=== PATIENT | male | born 1955 | race Caucasian/White ===

== ENCOUNTER 2016-11-04 08:58 | Day surgery (SDC) | payer BC ==
[2016-11-04 09:47] LABS: HEMATOCRIT 38.5 % (37.9-51.0); HEMOGLOBIN 13.5 g/dL (13.5-17.0); MEAN CORPUSCULAR HEMOGLOBIN 32.3 pg (27.0-33.4); MEAN CORPUSCULAR VOLUME 92 fl (80-97); RED BLOOD COUNT 4.17 10^6/uL (4.35-5.55); RED CELL DISTRIBUTION WIDTH 12.8 % (11.5-14.0); WHITE BLOOD COUNT 4.4 10^3/uL (4.0-10.5)
[2016-11-04] MEDS ORDERED: PROMETHAZINE HCL INJ 25 MG/1 ML VIAL ONE (10:36)
[2016-11-04] MEDS ORDERED: NALOXONE HCL INJ/PF 0.4 MG/1 ML SDV ONE (10:36)
[2016-11-04] MEDS ORDERED: GLYCOPYRROLATE INJ 0.4 MG/2 ML VIAL ONE (10:36)
[2016-11-04] MEDS ORDERED: ONDANSETRON HCL INJ/PF 4 MG/2 ML SDV ONE (10:36)
[2016-11-04] MEDS ORDERED: GLUCAGON,HUMAN RECOMB 1 MG INJ ONE (10:37)
[2016-11-04] MEDS ORDERED: EPINEPHRINE INJ 1 MG/10 ML DISP.SYRIN ONE (10:37)
[2016-11-04] MEDS ORDERED: FENTANYL CITRATE INJ/PF 100 MCG/2 ML AMPUL ONE (10:37)
[2016-11-04] MEDS ORDERED: FLUMAZENIL INJ 0.5 MG/5 ML VIAL IV ONE (10:37)
[2016-11-04] MEDS: MIDAZOLAM 2 MG/2 ML INJ ONE ×3 (11:05→11:17)
--- NOTE | 2016-11-04 11:46 | Operative Report ---
Operative Report DATE OF SURGERY: 11/04/16 PREOPERATIVE DIAGNOSIS: Screening for colon malignancy POSTOPERATIVE DIAGNOSIS: Rectal polyps OPERATION: Colonoscopy with the biopsy and fulguration of upper rectal polyp. Snare polypectomy of mid rectal polyp. SURGEON: SAGAR BALLESTEROS ANESTHESIA: Moderate Sedation TISSUE REMOVED OR ALTERED: Mid rectal and upper rectal polyps COMPLICATIONS: None ESTIMATED BLOOD LOSS: minimal INTRAOPERATIVE FINDINGS: Half centimeter sessile polyps at the upper rectum and at the mid rectum PROCEDURE: Informed consent was obtained. Patient was brought to the endoscopy suite. IV sedation with Versed and fentanyl was administered. Digital rectal exam revealed no palpable perianal masses. Endoscope was passed via the patient's anus it was fed to the cecum. The bowel prep was good visualization was good the cecum right colon transverse colon were all normal. Descending colon has scattered diverticuli there were more diverticuli in the sigmoid colon. At the mid to upper rectum there was a half centimeter sessile polyp which was biopsied and then fulgurated. Little bit distal to this polyp at the mid rectum there was a half centimeter sessile polyp which was snare polypectomy then specimen retrieved. Patient tolerated procedure well with no apparent complications and was taken to the recovery area in stable condition. Status post successful polypectomies of 2 rectal polyps. Will follow-up with the patient in a couple weeks with the biopsy results.
--- NOTE | 2016-11-04 11:49 | PDOC DISCHARGE SUMMARY ---
Discharge Summary (SDC) - Discharge Final Diagnosis: Rectal polyps 2. Colon diverticulosis. Date of Surgery: 11/04/16 Discharge Date: 11/04/16 Condition: Good Treatment or Instructions: Colonoscopy with polypectomies 2. December discharge patient home when met discharge criteria. Follow-up with me in 2 weeks. Discharge Diet: As Tolerated Discharge Activity: Activity As Tolerated Report the Following to Your Physician Immediately: Increase in Pain - Normal to have some abdominal discomfort but not severe pain, Unusual Bleeding - Normal to have small amounts of bleeding.
[2016-11-04 12:45] VITALS: BP 133/86
== END 2016-11-04 12:40 | disposition home or self-care (01) ==
LOC: END 08:58
PROVIDERS: ATTEND Surgery
PROC: 0DBN8ZX Excision of Sigmoid Colon, Via Natural or Artificial Opening Endoscopic, Diagnostic (ICD-10-PCS; principal; 2016-11-04 10:30)
PROC: 0DBP8ZX Excision of Rectum, Via Natural or Artificial Opening Endoscopic, Diagnostic (ICD-10-PCS; 2016-11-04 10:30)
DX: Z12.11 Encounter for screening for malignant neoplasm of colon (principal); K62.1 Rectal polyp; K63.5 Polyp of colon; K57.30 Diverticulosis of large intestine without perforation or abscess without bleeding; I10 Essential (primary) hypertension; K21.9 Gastro-esophageal reflux disease without esophagitis; Z79.899 Other long term (current) drug therapy; Z79.82 Long term (current) use of aspirin; Z87.891 Personal history of nicotine dependence
CPT/HCPCS: 45384; 45385; 36415; 85027; 88305 ×2; J2250; J3010; J0171; J1610; J2310; J2405; J2550; J3490

== ENCOUNTER → 2017-03-11 | Outpatient (CLI) | payer BC ==
[2017-03-11 08:44] LABS: ABSOLUTE EOSINOPHILS # (AUTO) 0.1 10^3/uL (0.0-0.6); ABSOLUTE LYMPHOCYTES (AUTO) 2.5 10^3/uL (0.5-4.7); ABSOLUTE MONOCYTES (AUTO) 0.5 10^3/uL (0.1-1.4); BASOPHILS % (AUTO) 0.7 % (0-2); EOSINOPHILS % (AUTO) 2.9 % (0-6); HEMATOCRIT 42.4 % (37.9-51.0); HEMOGLOBIN 14.9 g/dL (13.5-17.0); HGB HCT DIFFERENCE 2.3; LYMPHOCYTES % (AUTO) 47.7 % (13-45); MEAN CORPUSCULAR HEMOGLOBIN 32.9 pg (27.0-33.4); MEAN CORPUSCULAR HGB CONC 35.1 g/dL (32.0-36.0); MEAN CORPUSCULAR VOLUME 94 fl (80-97); MONOCYTES % (AUTO) 10.2 % (3-13); RED BLOOD COUNT 4.52 10^6/uL (4.35-5.55); RED CELL DISTRIBUTION WIDTH 12.8 % (11.5-14.0); SEGMENTED NEUTROPHILS % (AUTO) 38.5 % (42-78); WHITE BLOOD COUNT 5.1 10^3/uL (4.0-10.5)
[2017-03-11 09:18] LABS: ALANINE AMINOTRANSFERASE 31 U/L (21-72); ALBUMIN 4.2 g/dL (3.5-5.0); ALKALINE PHOSPHATASE 56 U/L (38-126); ANION GAP 9 (5-19); ASPARTATE AMINO TRANSFERASE 25 U/L (17-59); BILIRUBIN,DIRECT 0.3 mg/dL (0.0-0.4); BILIRUBIN,TOTAL 0.6 mg/dL (0.2-1.3); BLOOD UREA NITROGEN 12 mg/dL (7-20); CARBON DIOXIDE 27 mmol/L (22-30); CHLORIDE 98 mmol/L (98-107); CHOLESTEROL 194.89 mg/dL (0-200); CREATININE RESULT 0.84 mg/dL (0.52-1.25); Direct HDL 81 mg/dL (>40); GLUCOSE 99 mg/dL (75-110); POTASSIUM 4.9 mmol/L (3.6-5.0); SODIUM 133.8 mmol/L (137-145); TOTAL PROTEIN 7.5 g/dL (6.3-8.2); TRIGLYCERIDES 77 mg/dL (<150)
[2017-03-11 09:30] LABS: DIRECT LDL 96 mg/dL (<100)
== END ==
LOC: OD 07:54
PROVIDERS: ATTEND Internal Medicine
DX: I10 Essential (primary) hypertension (principal); E78.5 Hyperlipidemia, unspecified; R35.1 Nocturia
CPT/HCPCS: 36415; 80053; 80061; 84153; 84443; 85025

== ENCOUNTER 2017-11-12 07:48 | Day surgery (SDC) | payer BC ==
[~2017-11-12 07:48] MED LIST: EPINEPHRINE INJ 1 MG/10 ML DISP.SYRIN ONE; FENTANYL CITRATE INJ/PF 100 MCG/2 ML AMPUL ONE; FLUMAZENIL INJ 0.5 MG/5 ML VIAL ONE; GLUCAGON,HUMAN RECOMB 1 MG INJ ONE; MIDAZOLAM 2 MG/2 ML INJ ONE; NALOXONE HCL INJ/PF 0.4 MG/1 ML SDV ONE; ONDANSETRON HCL INJ/PF 4 MG/2 ML SDV ONE
[2017-11-12] MEDS: MIDAZOLAM 2 MG/2 ML INJ ONE ×3 (08:16→08:26)
--- NOTE | 2017-11-12 08:42 | Discharge Summary ---
Discharge Summary (SDC) - Discharge Final Diagnosis: 1. Gastroesophageal reflux disease 2. Gastritis Date of Surgery: 11/12/17 Discharge Date: 11/12/17 Condition: Good Treatment or Instructions: [facility] [place] [id number] POST ENDOSCOPY DISCHARGE INSTRUCTIONS 1. Diet: Start clear liquids that a regular diet as tolerated. 2. Resume all preoperative medications. All oral anticoagulants and aspirins can be resumed 24 hours after procedure. 3. If a polypectomy was performed some bleeding per rectum may occur. This should stop within 3 days. If not, please contact the office. 4. If you had a colonoscopy you may experience some bloating and delayed return of normal bowel function for several days, your regular bowel movement pattern should resume within a week. 5. Please contact [facility] at to make an appointment with Dr. Barillas for 1 to 3 weeks following procedure. 6. If you have any questions or concerns regarding your care,treatment plan or follow up, please contact our office. Referrals: ERYN HAMEED MD [Primary Care Provider] - Discharge Diet: As Tolerated Discharge Activity: Activity As Tolerated Home Care Assistance: None Needed Report the Following to Your Physician Immediately: Shortness of Breath, Increase in Pain, Fever over 101 Degrees
--- NOTE | 2017-11-12 08:47 | Operative Report ---
Operative Report DATE OF SURGERY: 11/12/17 PREOPERATIVE DIAGNOSIS: 1. Gastroesophageal reflux disease POSTOPERATIVE DIAGNOSIS: Same with mild gastritis OPERATION: 1. Esophagogastroduodenoscopy. 2. Cold forceps biopsy of gastric antrum. 3. Cold forceps biopsy of the distal esophagus at the Z line SURGEON: LAUREN MORGAN ANESTHESIA: Moderate Sedation TISSUE REMOVED OR ALTERED: Gastric biopsy COMPLICATIONS: None ESTIMATED BLOOD LOSS: Scant INTRAOPERATIVE FINDINGS: See below PROCEDURE: He was taken from the preop holding area the main endoscopy suite where conscious sedation was induced after hooking the patient up to the appropriate monitoring devices. Surgical plan and surgical timeout were conducted. Oral mouthpiece have been inserted and the hypopharynx anesthetized with topical lidocaine. The flexible upper endoscope was advanced to the oropharynx, the hypopharynx, down the esophagus through the stomach into the duodenum. This was an excellent study, and well tolerated by the patient The duodenum was normal. The first and second portions of the duodenum were completely visualized. The scope was brought through the pylorus and pyloric channel. There is mild erythema of the pylorus. No ulceration. The gastric antrum showed mild erythema consistent with gastritis. There was one site of recent bleeding in the mid body of the stomach which is photographed. There was no obvious ulcer or tumor. A random biopsy the gastric antrum was obtained and sent for SHAR testing. Scope was retroflexed in the stomach. GE junction visualized from the stomach side and there was no significant hiatal or any. Scope was brought back through the GE junction. Z line was at approximately 40 cm from the incisor. There was mild irregularity, with no evidence of ulceration. A single biopsy was obtained of the GE junction right at the Z line. The scope was brought back to the esophagus. There was no evidence of ulceration or varix. Scope was withdrawn from the patient's oropharynx. Tolerated procedure well Discharge instructions provided separately.
[2017-11-12 10:05] VITALS: BP 128/70
== END 2017-11-12 09:42 | disposition home or self-care (01) ==
LOC: END 07:48
PROVIDERS: ATTEND Surgery
PROC: 0DB68ZX Excision of Stomach, Via Natural or Artificial Opening Endoscopic, Diagnostic (ICD-10-PCS; principal; 2017-11-12 08:15)
DX: K29.50 Unspecified chronic gastritis without bleeding (principal); K21.9 Gastro-esophageal reflux disease without esophagitis; I10 Essential (primary) hypertension; Z86.73 Personal history of transient ischemic attack (TIA), and cerebral infarction without residual deficits; Z87.891 Personal history of nicotine dependence; Z79.82 Long term (current) use of aspirin; Z79.899 Other long term (current) drug therapy; Z72.89 Other problems related to lifestyle; Z86.010 Personal history of colon polyps
CPT/HCPCS: 43239; 88342 ×2; 88305 ×2; J2250; J3010; J0171; J1610; J2310; J2405; J3490